=== PATIENT | male | born 1930 | race Caucasian/White ===

== ENCOUNTER 2017-03-10 10:12 | Outpatient (CLI) | payer MEDICARE | END 2017-03-10 10:13 | disposition home or self-care (01) | DX: I50.9 Heart failure, unspecified (principal); R06.00 Dyspnea, unspecified; B19.10 Unspecified viral hepatitis B without hepatic coma; B17.10 Acute hepatitis C without hepatic coma ==

== ENCOUNTER 2017-03-10 10:49 | Outpatient (CLI) | payer MEDICARE | END 2017-03-10 10:50 | disposition home or self-care (01) | DX: B19.10 Unspecified viral hepatitis B without hepatic coma (principal); B17.10 Acute hepatitis C without hepatic coma ==

== ENCOUNTER 2017-03-29 22:08 | Emergency (ER) | payer MEDICARE ==
--- NOTE | 2017-03-29 23:00 | ED Physician Documentation ---
History of Present Illness - Stated complaint Stated Complaint: CONSTIPATION - Chief complaint Chief Complaint: Abd Pain - History obtained from History obtained from: Patient - History of Present Illness Timing: How many days ago (3) Pain level now: 0 Improved by: no ameliorating factors Worsened by: no exacerbating factors - Additonal information Additional information: patient states "I'm constipated", describes urge to defecate and mild abdominal distention, no BM x 3 days. Denies pain. Recently started hemodialysis Review of Systems Constitutional: denies: Fever Cardiac: reports: Reviewed and negative Respiratory: reports: Reviewed and negative GI: reports: Abdominal Swelling, Constipation. 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 - Past Surgical History Past Surgical History: Yes Cardiovascular: Coronary stent - Present Medications Home Medications: Ambulatory Orders Medication Instructions Recorded Confirmed Aspirin Chewable [[facility] 03/29/17 Aspirin] Aspirin Chewable [[facility] 1 tab PO DAILY 03/29/17 03/29/17 Aspirin] Carvedilol 25 mg PO BID 03/29/17 03/29/17 Finasteride 5 mg PO DAILY 03/29/17 03/29/17 Furosemide 20 mg PO DAILY 03/29/17 03/29/17 Insulin 70/30 Human [NovoLIN] 10 units SUBQ DAILY 03/29/17 03/29/17 Lisinopril 20 mg PO DAILY 03/29/17 03/29/17 Lovastatin 40 mg PO DAILY 03/29/17 03/29/17 NIFEdipine [Procardia Xl] 90 mg PO DAILY 03/29/17 03/29/17 Terazosin HCl 10 mg PO DAILY 03/29/17 03/29/17 Lactulose 10 ml PO BID PRN #1 bottle 03/30/17 - Allergies Allergies/Adverse Reactions: Allergies Allergy/AdvReac Type Severity Reaction Status Date / Time No Known Drug Allergies Allergy Verified 03/29/17 22:27 - Social History Does the pt smoke?: No Smoking Status: Never smoker Does the pt drink ETOH?: Yes ETOH Use: Liquor Does the pt have substance abuse?: No - Immunizations Immunizations are current?: Yes - POLST Patient has POLST: No PD ED PE NORMAL - Vitals Vital signs reviewed: Yes - General General: Alert and oriented X 3, No acute distress, Well developed/nourished - Cardiac Cardiac: RRR, No murmur - Respiratory Respiratory: No respiratory distress, Clear bilaterally - Abdomen Abdomen: Normal bowel sounds, Soft, Non tender, Non distended, No organomegaly - Derm Derm: No rash PD ED PE EXPANDED - Rectal Rectal: No: Hemorrhoid, Fissure Results - Vitals Vitals: Vital Signs - 24 hr 03/29/17 03/29/17 03/29/17 22:23 22:52 23:51 Temperature 36.7 C 36.0 C L Heart Rate 44 L 45 L 40 L Respiratory 16 18 15 Rate Blood Pressure 123/45 L 154/46 H 131/39 H O2 Saturation 97 95 98 03/30/17 03/30/17 00:50 01:02 Temperature 36.0 C L 36.5 C Heart Rate 42 L 51 L Respiratory 15 16 Rate Blood Pressure 142/55 H 140/60 H O2 Saturation 96 100 Oxygen O2 Source Room air PD MEDICAL DECISION MAKING - ED course Complexity details: re-evaluated patient, considered differential, d/w patient, d/w family ED course: Given fleets enema in ED without results. Bladder scan showed empty bladder ( readings were no greater than 20cc). He is in NAD and abdominal exam is benign ( specifically, there is no abdominal tenderness any quadrant), and thus discharged with rx for miralax. Departure - Departure Disposition: 01 Home, Self Care Clinical Impression: Constipation Condition: Good Instructions: ED Constipation Follow-Up: Mary Chirinos MD [Primary Care Provider] - Prescriptions: Lactulose 10 ml PO BID PRN #1 bottle PRN Reason: Constipation Discharge Date/Time: 03/30/17 01:03
[2017-03-29] MEDS ORDERED: MINERAL OIL ENEMA 133 ML BOTTLE RC STA (23:09)
[2017-03-29] MEDS ORDERED: SALINE ENEMA 133 ML BOTTLE RC STA (23:24)
[2017-03-30 01:06] VITALS: BP 140/60
== END 2017-03-30 01:03 | disposition home or self-care (01) ==
LOC: ED 22:08
DX: K59.00 Constipation, unspecified (principal); I12.0 Hypertensive chronic kidney disease with stage 5 chronic kidney disease or end stage renal disease; N18.6 End stage renal disease; Z99.2 Dependence on renal dialysis; Z79.82 Long term (current) use of aspirin
CPT/HCPCS: 51798; 99283; A9270

== ENCOUNTER 2017-03-31 09:48 | Outpatient (CLI) | payer MEDICARE | END 2017-03-31 09:49 | disposition short-term general hospital (02) | LOC: EMS 09:48 | PROVIDERS: ATTEND Surgery | DX: R53.1 Weakness (principal); M79.604 Pain in right leg; Z99.2 Dependence on renal dialysis | CPT/HCPCS: A0425; A0429 ==

== ENCOUNTER 2019-01-31 14:47 | Outpatient (CLI) | payer MEDICARE ==
--- NOTE | 2019-02-01 11:25 | Ultrasound Report ---
Reason: BRUIT OF LEFT CAROTID ARTERY Procedure Date: 01/31/2019 Accession Number: [id number] / [id number] Procedure: US - Carotid Doppler Complete CPT Code: FULL RESULT: EXAM: BILATERAL CAROTID AND VERTEBRAL ARTERY DUPLEX DOPPLER ULTRASOUND: EXAM DATE: 01/31/2019 04:15 PM CLINICAL HISTORY: Bruit of left carotid artery. COMPARISON: CAROTID DOPPLER COMPLETE 10/22/2016 9:31 AM. TECHNIQUE: Grayscale imaging, color Doppler, and duplex spectral Doppler were used to evaluate the carotid and vertebral arteries bilaterally. Static images were obtained. FINDINGS: Stable mild to moderate atheromatous plaque in the proximal right ICA. Stable mild atheromatous plaque at origin of left ICA. Stable mild to moderate plaque of the proximal left external carotid. No significant plaque is identified in the right or left common or internal carotid arteries. Normal antegrade flow is present in bilateral vertebral arteries. VELOCITIES (cm/sec): RIGHT: CCA mid: PSV 58.8 cm/sec CCA dist: PSV 60.7 cm/sec ICA prox: PSV 73.8 cm/sec, EDV 14.9 cm/sec ICA mid: PSV 90.6 cm/sec, EDV 17.3 cm/sec ICA dist: PSV 58.3 cm/sec, EDV 11.2 cm/sec ECA: PSV 92.8 cm/sec Vert: PSV 48.2 cm/sec ICA/CCA: 1.49 LEFT: CCA mid: PSV 66.7 cm/sec CCA dist: PSV 66.8 cm/sec ICA prox: PSV 70.0 cm/sec, EDV 11.2 cm/sec ICA mid: PSV 71.7 cm/sec, EDV 14.6 cm/sec ICA dist: PSV 68.9 cm/sec, EDV 13.4 cm/sec ECA: PSV 108.3 cm/sec Vert: PSV 27.5 cm/sec ICA/CCA: 1.07 ICA diameter stenosis: Right: <50% by velocity and <70% by NASCET criteria. Left: <50% by velocity and <70% by NASCET criteria. IMPRESSION: 1. 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 2. In the right carotid artery there are no elevated carotid artery velocities to suggest hemodynamically significant stenosis. 3. In the left carotid artery there are no elevated carotid artery velocities to suggest hemodynamically significant stenosis. 4. Normal antegrade flow is present in bilateral vertebral arteries. General Recommendations: Stenosis =50% ICA - Follow-up ultrasound 6-12 months Stenosis <50% ICA - High Risk Patient with plaque - Follow-up ultrasound 1-2 years Normal Study but High Risk Patient - Follow-up ultrasound 3-5 years Management recommendations and diagnostic criteria are based on current IAC endorsed standards in Carotid Artery Stenosis: Grayscale and Doppler Ultrasound Diagnosis. Validated velocity measurements with angiographic measurements and velocity criteria are extrapolated from diameter data as defined by the Society of Radiologists in Ultrasound Consensus Conference Radiology 2003; 229;340-346. RADIA
== END 2019-01-31 14:48 | disposition home or self-care (01) ==
LOC: DI 14:47
PROVIDERS: ATTEND Specialist
DX: I65.23 Occlusion and stenosis of bilateral carotid arteries (principal)
CPT/HCPCS: 93880

== ENCOUNTER 2019-07-30 08:18 | Emergency (ER) | payer MEDICARE ==
[2019-07-30 08:29] VITALS: BP 159/52
--- NOTE | 2019-07-30 09:48 | XRAY Report ---
Reason: right posterior shoulder pain Procedure Date: 07/30/2019 Accession Number: [id number] / [id number] Procedure: XR - Chest 2 View X-Ray CPT Code: 30722 FULL RESULT: EXAM: CHEST RADIOGRAPHY EXAM DATE: 07/30/2019 09:40 AM. CLINICAL HISTORY: Right posterior shoulder pain. COMPARISON: CHEST 2 VIEW PA/LAT 03/10/2017 10:37 AM. TECHNIQUE: 2 views. FINDINGS: Lungs/Pleura: Compared to the prior exam, there is resolution of left pleural effusion. No obvious effusions, no pneumothoraces. Lungs are clear. Mediastinum: Interval placement of a dual-lead right subclavian pacemaker. Cardiac silhouette is upper limits of normal. Calcified aorta. Other: None. IMPRESSION: No acute disease. RADIA
--- NOTE | 2019-07-30 09:55 | ED Physician Documentation ---
History of Present Illness - Stated complaint Stated Complaint: SHOULDER PX - Chief complaint Chief Complaint: Ext Problem - History obtained from History obtained from: Patient - History of Present Illness Timing: How many days ago (10) - Additonal information Additional information: 88 y/o dialysis patient with a complaint of pain in the right shoulder that b others him while he is at dialysis. He denies specific triggers for pain. He does state that he sits up for dialysis and he will have this pain in the back of the shoulder. Not worse with inspiration or specific movement. He is not getting relief with tylenol. He did have some redness to the area that has resolved several days ago. He denies "electrical shock" like pain. He is vague on his description of the pain. Review of Systems Constitutional: denies: Fever Eyes: denies: Decreased vision Ears: denies: Ear pain Nose: denies: Congestion Throat: denies: Sore throat Cardiac: denies: Chest pain / pressure, Palpitations Respiratory: denies: Dyspnea, Cough GI: denies: Vomiting PD PAST MEDICAL HISTORY - Past Medical History Past Medical History: Yes Cardiovascular: Hypertension, High cholesterol - Past Surgical History Past Surgical History: Yes Cardiovascular: Coronary stent - Present Medications Home Medications: Ambulatory Orders Medication Instructions Recorded Confirmed Aspirin Chewable [[facility] 1 tab PO DAILY 03/29/17 07/30/19 Aspirin] Carvedilol 25 mg PO BID 03/29/17 07/30/19 Lisinopril 40 mg PO DAILY 03/29/17 07/30/19 Hydrocodone/Acetaminophen 1 - 2 each PO Q6H PRN #14 tablet 07/30/19 [Hydrocodon-Acetaminophen 5-325] amLODIPine [Norvasc] 2.5 mg PO DAILY 07/30/19 07/30/19 - Allergies Allergies/Adverse Reactions: Allergies Allergy/AdvReac Type Severity Reaction Status Date / Time No Known Drug Allergies Allergy Verified 07/30/19 08:29 - Social History Does the pt smoke?: No Smoking Status: Never smoker Does the pt drink ETOH?: Yes Does the pt have substance abuse?: No - Immunizations Immunizations are current?: Yes - POLST Patient has POLST: No PD ED PE NORMAL - Vitals Vital signs reviewed: Yes (hypertensive ) - General General: Alert and oriented X 3, No acute distress, Well developed/nourished - HEENT HEENT: Atraumatic, PERRL, EOMI - Neck Neck: Supple, no meningeal sign - Cardiac Cardiac: RRR, No murmur - Respiratory Respiratory: No respiratory distress, Clear bilaterally - Back Back: No CVA TTP, No spinal TTP - Derm Derm: Normal color, Warm and dry, No rash - Extremities Extremities: No deformity, No edema, Other (There is specifically no tenderness over the posterior shoulder area over the upper portion of the scapula where he identifies the pain. There are no skin changes or evidence of recent skin erruption. The shoulder moves in a full ROM with excacerbating pain. The distal n/v is intact. 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, No motor deficit, No sensory deficit, Normal speech Eye Opening: Spontaneous Motor: Obeys Commands Verbal: Oriented GCS Score: 15 - Psych Psych: Normal mood, Normal affect Results - Vitals Vitals: Vital Signs - 24 hr 07/30/19 08:27 Temperature 35.9 C L Heart Rate 68 Respiratory 14 Rate Blood Pressure 159/52 H O2 Saturation 97 Oxygen O2 Source Room air - Rads (name of study) chest Radiology: Prelim report reviewed (Impression: No acute disease.), EMP read indepedently, See rad report shoulder Radiology: Prelim report reviewed (Impression: No fracture or dislocation.), EMP read indepedently, See rad report PD MEDICAL DECISION MAKING - ED course Complexity details: reviewed results, re-evaluated patient, considered differential, d/w patient, d/w family ED course: 88 y/o male with vague shoulder pain is not getting relief at dialysis. He does not seem to be bothered by this at all right now and his diagnostics are unremarkable. We will provide him with some pain medication to take during dialysis. Departure - Departure Disposition: 01 Home, Self Care Clinical Impression: Shoulder pain, right Qualifiers: Chronicity: acute Qualified Code(s): M25.511 - Pain in right shoulder Condition: Stable Instructions: ED Strain Muscle Ext Follow-Up: Libby Avila PA-C [Primary Care Provider] - Prescriptions: Hydrocodone/Acetaminophen [Hydrocodon-Acetaminophen 5-325] 1 - 2 each PO Q6H PRN #14 tablet PRN Reason: pain Discharge Date/Time: 07/30/19 10:29
--- NOTE | 2019-07-30 10:11 | XRAY Report ---
Reason: posterior pain Procedure Date: 07/30/2019 Accession Number: [id number] / [id number] Procedure: XR - Shoulder 3 View RT CPT Code: FULL RESULT: EXAM: RIGHT SHOULDER RADIOGRAPHY EXAM DATE: 07/30/2019 09:40 AM. CLINICAL HISTORY: Posterior pain. COMPARISON: None. TECHNIQUE: 3 views. FINDINGS: Bones: Normal. No fracture or bone lesion. Joints: Some very mild degenerative spurring at the undersurface of the acromioclavicular joint. No dislocations. Soft tissues: Visualized right chest is unremarkable. Right chest pacemaker. IMPRESSION: No fracture or dislocation. RADIA
== END 2019-07-30 10:29 | disposition home or self-care (01) ==
LOC: ED 08:18
DX: M25.511 Pain in right shoulder (principal); Z99.2 Dependence on renal dialysis; I10 Essential (primary) hypertension; Z79.82 Long term (current) use of aspirin
CPT/HCPCS: 71046; 99284

== ENCOUNTER 2019-08-31 08:36 | Outpatient (CLI) | payer MEDICARE ==
--- NOTE | 2019-09-01 01:36 | XRAY Report ---
Reason: SHORTNESS OF BREATH Procedure Date: 08/31/2019 Accession Number: [id number] / [id number] Procedure: XR - Chest 2 View X-Ray CPT Code: 69042 FULL RESULT: EXAM: CHEST RADIOGRAPHY EXAM DATE: 08/31/2019 08:50 AM. CLINICAL HISTORY: SHORTNESS OF BREATH. COMPARISON: CHEST 2 VIEW 07/30/2019 9:26 AM. TECHNIQUE: 2 views. FINDINGS: Lungs/Pleura: No consolidation, airspace disease, pleural effusion or pneumothorax. Hyperinflated lungs. Mediastinum: Mild cardiomegaly, unchanged. Pacemaker again noted. IMPRESSION: Stable exam as above. No acute findings are seen. RADIA
== END 2019-08-31 08:37 | disposition home or self-care (01) ==
LOC: DI 08:36
PROVIDERS: ATTEND Internal Medicine Nephrology
DX: R06.02 Shortness of breath (principal)
CPT/HCPCS: 71046

== ENCOUNTER 2020-03-21 06:56 | Outpatient (CLI) | payer MEDICARE ==
[2020-03-21 07:36] LABS: ALBUMIN 3.8 g/dL (3.2-5.5); ALBUMIN/GLOBULIN RATIO 1.2 (1.0-2.2); BILIRUBIN,TOTAL 0.8 mg/dL (0.2-1.0); CALCIUM 8.9 mg/dL (8.5-10.3); CREATININE 4.5 mg/dL (0.6-1.2); MAGNESIUM 1.9 mg/dL (1.7-2.8); TOTAL PROTEIN 6.9 g/dL (6.7-8.2)
[2020-03-25 07:35] LABS: HDL LARGE 3760 nmol/L (>6729); LDL PARTICLE NUMBER 1009 nmol/L (<1138); LDL PATTERN B Pattern (A); LDL PEAK SIZE 211.6 Angstrom (>222.9); LDL SMALL 232 nmol/L (<142)
== END 2020-03-21 06:57 | disposition home or self-care (01) ==
LOC: LAB 06:56
PROVIDERS: ATTEND Specialist
DX: I48.0 Paroxysmal atrial fibrillation (principal); E78.5 Hyperlipidemia, unspecified
CPT/HCPCS: 36415; 80053; 80061; 81599; 83704; 83735

== ENCOUNTER 2020-07-21 08:26 | Outpatient (CLI) | payer MEDICARE | END 2020-07-21 23:59 | disposition home or self-care (01) | LOC: LAB.WCP 08:26 | PROVIDERS: ATTEND Specialist | DX: I47.2 Ventricular tachycardia (principal) | CPT/HCPCS: 36415; 83735 ==